=== PATIENT | female | born 1960 | race Caucasian/White ===

== ENCOUNTER 2019-03-01 14:24 | Inpatient (IN) | payer OTHER ==
[~2019-03-01] VITALS: Ht 165.1 cm; Wt 82.4 kg
[~2019-03-01 14:24] MED LIST: ALBUTEROL SULFATE 200 PUFFS/8.5 GR INH ONE
--- NOTE | 2019-03-01 16:26 | NUR ---
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
[2019-03-01] MEDS ORDERED: OMEP-110 PO (16:32)
[2019-03-01] MEDS ORDERED: VENL75CA PO (16:32)
[2019-03-01] MEDS ORDERED: ZIPR40CA2 PO (16:32)
[2019-03-01] MEDS ORDERED: GABA800T5 PO (16:32)
[2019-03-01] MEDS ORDERED: OXYC-307 PO (16:32)
[2019-03-01] MEDS ORDERED: LEVO88TA4 PO (16:32)
[2019-03-01] MEDS ORDERED: BACL20TA PO (16:32)
[2019-03-01] MEDS ORDERED: TRAZ-137 PO (16:32)
[2019-03-01] MEDS ORDERED: POTASSIUM (16:32)
[2019-03-01] MEDS ORDERED: HYDR25TA11 PO (16:32)
[2019-03-01] MEDS ORDERED: FURO40TA6 PO (16:32)
--- NOTE | 2019-03-01 16:36 | NUR ---
pt to ed after getting out of bed on 02/15/2019 and right ankle buckled. lower leg has been bruised and swollen since then. xr and us complete. awaiting edmd assessment.
--- NOTE | 2019-03-01 17:27 | NUR ---
all results back at this time. chart up for recheck. pt resting in room wtih friend at bedside. vss. no needs expressed. call light within reach.
[2019-03-01] MEDS ORDERED: CEFAZOLIN PMX 1GM/50ML 50 ML IV ONE (17:57)
[2019-03-01] MEDS ORDERED: SODIUM CHLORIDE FLUSH 10ML SYR IVF ONE (18:00)
[2019-03-01 18:24] LABS: BASOPHILS % (AUTO) 1 % (0-1); EOSINOPHILS # (AUTO) 0.18 x10^3/uL (0-0.4); EOSINOPHILS % (AUTO) 3 % (1-7); LYMPHOCYTES % (AUTO) 27 % (22-44); MD NO; MEAN CORPUSCULAR HEMOGLOBIN 33.1 pg (27.0-34.8); MEAN CORPUSCULAR HGB CONC 34.4 g/dL (32.4-35.8); MEAN CORPUSCULAR VOLUME 96.3 fL (80-100); MEAN PLATELET VOLUME 7.3 fL (7.4-10.4); MONOCYTES # (AUTO) 0.34 x10^3/uL (0.2-0.8); MONOCYTES % (AUTO) 5 % (2-9); NEUTROPHILS # (AUTO) 4.78 x10^3/uL (1.8-6.8); NEUTROPHILS % (AUTO) 65 % (42-75); PLATELET COUNT 256 x10^3/uL (130-400); RED BLOOD COUNT 5.03 x10^6/uL (3.82-5.3); RED CELL DISTRIBUTION WIDTH 13.9 % (9.6-15.2)
[2019-03-01] MEDS ORDERED: morphine SULFATE 10 MG/ML, 1ML IVPush PRN (18:30)
[2019-03-01] MEDS ORDERED: ACETAMINOPHEN 325 MG TABLET PO PRN (18:30)
--- NOTE | 2019-03-01 18:30 | NUR ---
hospitalist to bedside. iv established and labs drawn and sent. vss. awaiting room assignment.
[2019-03-01 18:31] LABS: ALBUMIN 3.7 g/dL (3.4-5.0); ANION GAP 5 mmol/L (5-15); CALCIUM 9.1 mg/dL (8.5-10.1); CHLORIDE 108 mmol/L (98-107); CREATININE 1.69 mg/dL (0.55-1.02)
[2019-03-01] MEDS ORDERED: CEFAZOLIN PMX 1GM/50ML 50 ML ONE (18:32)
[2019-03-01] MEDS ORDERED: HYDROcodone/APAP 5/325 TABLET ONE (18:56)
[2019-03-01] MEDS: HYDROcodone/APAP 5/325 TABLET PO PRN (18:58)
[2019-03-01] MEDS ORDERED: FENTANYL PF 250 MCG/5ML ONE (20:26)
[2019-03-01] MEDS ORDERED: MIDAZOLAM 1 MG/ML, 2ML ONE (20:26)
[2019-03-01] MEDS: INSULIN LISPRO 100 UNITS/ML, PEN SQ-INSULIN SCH (21:00)
[2019-03-01] MEDS ORDERED: ROCURONIUM 10MG/ML,5ML ONE (21:23)
[2019-03-01] MEDS ORDERED: DEXAMETHASONE 4 MG/ML, 1ML ONE (21:23)
[2019-03-01] MEDS ORDERED: ONDANSETRON 2MG/ML, 2ML ONE (21:23)
[2019-03-01] MEDS ORDERED: PROPOFOL 10 MG/ML, 20ML ONE (21:23)
[2019-03-01] MEDS ORDERED: CEFAZOLIN 1,000 MG ONE (21:23)
[2019-03-01] MEDS ORDERED: GLYCOPYRROLATE 0.2MG/1ML, 5ML ONE (21:23)
[2019-03-01] MEDS ORDERED: NEOSTIGMINE 1 MG/ML, 10ML ONE (21:23)
[2019-03-01] MEDS ORDERED: SUCCINYLCHOLINE 20 MG/ML, 10ML ONE (21:23)
[2019-03-01] MEDS ORDERED: BUPIVACAINE/PF 0.5% ONE (21:26)
[2019-03-01] MEDS ORDERED: BUPIVACAINE/PF-EPI 0.5% 1:200K IM ONE (21:28)
[2019-03-01] MEDS ORDERED: ALBUTEROL/IPRATROPIUM 2.5MG/0.5MG, 3 ML NPPB PRN (22:00)
[2019-03-01] MEDS ORDERED: FENTANYL PF 100 MCG/2ML ONE (22:18)
[2019-03-01] MEDS ORDERED: OXYcodone 5 MG/5 ML ORAL.SOL UDC ONE (22:19)
[2019-03-01] MEDS: FENTANYL PF 100 MCG/2ML IV PRN ×2 (22:23→22:34)
[2019-03-01] MEDS ORDERED: hydrALAzine 20 MG/ML, 1ML IV PRN (22:30)
[2019-03-01] MEDS ORDERED: MEPERIDINE/PF 25MG/0.5ML IVPush PRN (22:30)
[2019-03-01] MEDS ORDERED: HYDROmorphone 2 MG/ML, 1ML IVPush PRN (22:30)
[2019-03-01] MEDS ORDERED: ONDANSETRON 2MG/ML, 2ML IV PRN (22:30)
[2019-03-01] MEDS ORDERED: LABETALOL 5MG/ML, 20ML IV PRN (22:30)
[2019-03-01] MEDS ORDERED: OXYcodone 5 MG/5 ML ORAL.SOL UDC PO PRN (22:30)
[2019-03-01] MEDS ORDERED: PROMETHAZINE 25 MG/ML, 1ML IV PRN (22:30)
[2019-03-02] VITALS: BP 120/76
[2019-03-02] MEDS ORDERED: TRAZODONE 150MG TABLET PO SCH
[2019-03-02 00:05] VITALS: BP 136/85
[2019-03-02] MEDS ORDERED: CARB200T4 PO (00:34)
[2019-03-02] MEDS: CARBAMAZEPINE 200 MG TABLET PO SCH ×3 (01:06→20:53)
[2019-03-02] MEDS: HYDROcodone/APAP 5/325 TABLET PO PRN ×5 (03:03→19:38)
[2019-03-02 04:05] VITALS: BP 98/61
[2019-03-02] MEDS: CEFAZOLIN PMX 2GM/50ML 50 ML IVPB SCH ×2 (05:05→12:52)
[2019-03-02 05:20] LABS: ANION GAP 6 mmol/L (5-15); CALCIUM 8.1 mg/dL (8.5-10.1); CHLORIDE 108 mmol/L (98-107)
[2019-03-02 05:22] LABS: CREATININE 1.58 mg/dL (0.55-1.02)
[2019-03-02 05:24] LABS: BASOPHILS # (AUTO) 0.03 x10^3/uL (0-0.1); BASOPHILS % (AUTO) 1 % (0-1); EOSINOPHILS # (AUTO) 0.01 x10^3/uL (0-0.4); EOSINOPHILS % (AUTO) 0 % (1-7); LYMPHOCYTES # (AUTO) 0.82 x10^3/uL (1-3.4); LYMPHOCYTES % (AUTO) 12 % (22-44); MD NO; MEAN CORPUSCULAR HEMOGLOBIN 32.1 pg (27.0-34.8); MEAN CORPUSCULAR HGB CONC 33.2 g/dL (32.4-35.8); MEAN CORPUSCULAR VOLUME 96.7 fL (80-100); MEAN PLATELET VOLUME 7.2 fL (7.4-10.4); MONOCYTES % (AUTO) 2 % (2-9); NEUTROPHILS # (AUTO) 5.81 x10^3/uL (1.8-6.8); NEUTROPHILS % (AUTO) 86 % (42-75); PLATELET COUNT 237 x10^3/uL (130-400); RED BLOOD COUNT 4.53 x10^6/uL (3.82-5.3); RED CELL DISTRIBUTION WIDTH 13.6 % (9.6-15.2)
[2019-03-02] MEDS: INSULIN LISPRO 100 UNITS/ML, PEN SQ-INSULIN SCH ×4 (06:45→20:42)
[2019-03-02] MEDS ORDERED: ZIPRASIDONE 40MG CAPSULE PO SCH ×3 (09:00→21:00)
[2019-03-02] MEDS: BACLOFEN 10 MG TABLET PO SCH ×3 (09:01→20:53)
[2019-03-02] MEDS: LEVOTHYROXINE 88 MCG TABLET PO SCH (09:02)
[2019-03-02] MEDS: GABAPENTIN 300 MG CAPSULE PO SCH ×3 (09:02→20:53)
[2019-03-02] MEDS: FUROSEMIDE 40 MG TABLET PO SCH (09:02)
[2019-03-02] MEDS: OMEPRAZOLE 20 MG CAPSULE.DR PO SCH (09:02)
[2019-03-02] MEDS: VENLAFAXINE 75 MG CAP ER PO SCH (09:05)
[2019-03-02 09:54] VITALS: BP 91/59
[2019-03-02 14:08] VITALS: BP 98/62
[2019-03-02 19:09] VITALS: BP 99/61
[2019-03-02] MEDS ORDERED: TRAZODONE 100MG TABLET PO SCH (21:00)
[2019-03-03] MEDS: HYDROcodone/APAP 5/325 TABLET PO PRN ×4 (00:10→12:17)
[2019-03-03 01:59] VITALS: BP 106/62
[2019-03-03] MEDS: INSULIN LISPRO 100 UNITS/ML, PEN SQ-INSULIN SCH ×2 (06:46→11:17)
[2019-03-03] MEDS ORDERED: ASPI81TA45 PO (07:55)
[2019-03-03 08:11] VITALS: BP 102/67
[2019-03-03] MEDS: OMEPRAZOLE 20 MG CAPSULE.DR PO SCH (08:30)
[2019-03-03] MEDS: GABAPENTIN 300 MG CAPSULE PO SCH (08:30)
[2019-03-03] MEDS: FUROSEMIDE 40 MG TABLET PO SCH (08:30)
[2019-03-03] MEDS: LEVOTHYROXINE 88 MCG TABLET PO SCH (08:30)
[2019-03-03] MEDS: VENLAFAXINE 75 MG CAP ER PO SCH (08:31)
[2019-03-03] MEDS: BACLOFEN 10 MG TABLET PO SCH (08:31)
[2019-03-03] MEDS: CARBAMAZEPINE 200 MG TABLET PO SCH (08:37)
[2019-03-03 12:18] VITALS: BP 114/76
== END 2019-03-03 12:55 | disposition home or self-care (01) | DRG 493 ==
LOC: ED 17:48 → EDIP 17:49 → ED 18:03 → 4NOR 23:04 → DCLOUNGE 03-03 12:50
PROVIDERS: ADMIT Internal Medicine; ATTEND Internal Medicine
PROC: 0QSG04Z Reposition Right Tibia with Internal Fixation Device, Open Approach (ICD-10-PCS; 2019-03-01)
PROC: 0QSJ04Z Reposition Right Fibula with Internal Fixation Device, Open Approach (ICD-10-PCS; principal; 2019-03-01 20:00)
DX: S82.841A Displaced bimalleolar fracture of right lower leg, initial encounter for closed fracture (principal); J98.11 Atelectasis; E03.9 Hypothyroidism, unspecified; E11.22 Type 2 diabetes mellitus with diabetic chronic kidney disease; F17.210 Nicotine dependence, cigarettes, uncomplicated; F31.9 Bipolar disorder, unspecified; I12.9 Hypertensive chronic kidney disease with stage 1 through stage 4 chronic kidney disease, or unspecified chronic kidney disease; G89.29 Other chronic pain; G43.909 Migraine, unspecified, not intractable, without status migrainosus; M54.9 Dorsalgia, unspecified; J44.9 Chronic obstructive pulmonary disease, unspecified; N18.3 Chronic kidney disease, stage 3 (moderate); W18.39XA Other fall on same level, initial encounter; Y93.89 Activity, other specified; I25.2 Old myocardial infarction; Y92.89 Other specified places as the place of occurrence of the external cause; Y99.8 Other external cause status; Z79.899 Other long term (current) drug therapy; Z88.8 Allergy status to other drugs, medicaments and biological substances; Z88.7 Allergy status to serum and vaccine
CPT/HCPCS: 36415; 73600; 73610; 76000; J7620; 71045; 80048; 82040; 82962; 85025; 94640; C1713; G0378; J0690; J1100; J2250; J2405; J2704; J2710; J3010; J3490; J0330